=== PATIENT | female | born 1960 | race Caucasian/White ===

== ENCOUNTER 2018-06-23 22:15 | Emergency (ER) | payer MEDICAID ==
[~2018-06-23] VITALS: Ht 172.7 cm; Wt 63.6 kg
[~2018-06-23 22:15] MED LIST: ALBU8HFA PO; BACL10TA PO; CYCL-1 PO
[2018-06-24 00:22] VITALS: BP 170/75
== END 2018-06-24 00:24 | disposition home or self-care (01) ==
LOC: ER 22:16
DX: S01.01XA Laceration without foreign body of scalp, initial encounter (principal); S13.9XXA Sprain of joints and ligaments of unspecified parts of neck, initial encounter; S09.90XA Unspecified injury of head, initial encounter; I10 Essential (primary) hypertension; J45.909 Unspecified asthma, uncomplicated; G89.29 Other chronic pain; F12.90 Cannabis use, unspecified, uncomplicated; Z90.49 Acquired absence of other specified parts of digestive tract; Z98.890 Other specified postprocedural states; Z88.6 Allergy status to analgesic agent; Z88.5 Allergy status to narcotic agent; W01.198A Fall on same level from slipping, tripping and stumbling with subsequent striking against other object, initial encounter; Y93.89 Activity, other specified; Y92.89 Other specified places as the place of occurrence of the external cause; Y99.9 Unspecified external cause status
CPT/HCPCS: 12002; 70450; 72125; 99284

== ENCOUNTER 2019-08-29 14:35 | Emergency (ER) | payer MEDICAID ==
[~2019-08-29] VITALS: Ht 172.7 cm; Wt 70.0 kg
[2019-08-29 15:19] LABS: BASOPHILS # (AUTO) 0.1 X10'3 (0-0.2); BASOPHILS % (AUTO) 1.1 % (0-1); EOSINOPHILS # (AUTO) 0.2 X10'3 (0-0.9); EOSINOPHILS % (AUTO) 1.9 % (0-6); HEMATOCRIT 39.4 % (35.0-45.0); HEMOGLOBIN 13.5 g/dl (12.0-16.0); LYMPHOCYTES # (AUTO) 2.7 X10'3 (1.1-4.8); LYMPHOCYTES % (AUTO) 32.8 % (21-51); MEAN CORPUSCULAR HEMOGLOBIN 30.6 PG (27.0-31.0); MEAN CORPUSCULAR HGB CONC 34.3 g/dL (33.0-36.5); MEAN CORPUSCULAR VOLUME 89.2 FL (78-98); MEAN PLATELET VOLUME 8.8 FL (7.4-10.4); MONOCYTES # (AUTO) 0.6 X10'3 (0-0.9); NEUTROPHILS # (AUTO) 4.6 X10'3 (1.8-7.7); NEUTROPHILS % (AUTO) 57.2 % (42-75); PLATELET COUNT 265 X10'3 (140-440); RED BLOOD COUNT 4.42 X10'6 (4.20-5.60); RED CELL DISTRIBUTION WIDTH 13.6 % (11.5-14.5); WHITE BLOOD COUNT 8.1 X10'3 (4.5-11.0)
[2019-08-29 15:33] LABS: URINE HCG NEGATIVE (NEG)
[2019-08-29 15:33] LABS: ALANINE AMINOTRANSFERASE 33 U/L (12-78); ALBUMIN 3.6 G/DL (3.4-5.0); ALKALINE PHOSPHATASE 100 IU/L (46-116); ANION GAP 8 (8-16); ASPARTATE AMINO TRANSFERASE 28 U/L (10-37); BILIRUBIN,TOTAL 0.4 MG/DL (0.1-1.0); BLOOD UREA NITROGEN 21 MG/DL (7-18); BUN/CREATININE RATIO 15.6 (6.6-38.0); CALCIUM 10.2 MG/DL (8.5-10.1); CHLORIDE 103 MMOL/L (99-107); CREATININE 1.35 MG/DL (0.40-0.90); GLUCOSE 111 MG/DL (70-104); LIPASE 138 U/L (73-393); POTASSIUM 3.9 MMOL/L (3.5-5.1); SODIUM 142 MMOL/L (135-145); TOTAL CARBON DIOXIDE 30.7 MMOL/L (24-32); TOTAL PROTEIN 7.3 G/DL (6.4-8.2); eGFR 40 ML/MIN
[2019-08-29 15:36] LABS: CLARITY,URINE CLEAR (Clear); COLOR,URINE YELLOW (Yellow); GLUCOSE, URINE NEGATIVE (Neg); KETONES,URINE NEGATIVE (Neg); LEUKOCYTE ESTERASE ,URINE NEGATIVE (Neg); NITRITES, URINE NEGATIVE (Neg); OCCULT BLOOD,URINE NEGATIVE (Neg); PROTEIN,URINE NEGATIVE (Neg)
[2019-08-29 15:43] LABS: UA COLLECTION TYPE CLN CATCH MIDSTREAM
--- NOTE | 2019-08-29 16:03 | NUR ---
Provider, REY Adhikari is at the bedside with the patient.
[2019-08-29] MEDS ORDERED: ondansetron/PF 4mg/2ml inj IV ONE (16:20)
[2019-08-29] MEDS ORDERED: normal saline 1000ML IV soln IVB ONE (16:20)
[2019-08-29] MEDS ORDERED: morphine 4 MG/ML inj SYRINge IV ONE (16:20)
[2019-08-29] MEDS ORDERED: BACL10TA PO (17:23)
--- NOTE | 2019-08-29 17:47 | NUR ---
LEFT MESSAGE FOR AL: [phone]. ROSALINDA GAVE THE OKAY TO GIVE INFORMATION AND FOR HIM TO PICK HER UP.
[2019-08-29] MEDS ORDERED: amLODIPine 5mg tablet PO ONE (17:55)
[2019-08-29 18:44] VITALS: BP 160/75
[2019-08-29] MEDS ORDERED: LIDO700A32 TOP (19:03)
== END 2019-08-29 18:46 | disposition home or self-care (01) ==
LOC: ER 14:35
DX: M25.512 Pain in left shoulder (principal); F12.90 Cannabis use, unspecified, uncomplicated; F15.90 Other stimulant use, unspecified, uncomplicated; I10 Essential (primary) hypertension; J45.909 Unspecified asthma, uncomplicated; G89.29 Other chronic pain; Z90.49 Acquired absence of other specified parts of digestive tract; Z98.890 Other specified postprocedural states; Z88.6 Allergy status to analgesic agent; Z88.5 Allergy status to narcotic agent
CPT/HCPCS: 36415; 73030; 80053; 81003; 81025; 83690; 85025; 96374; 96375; 99284; J2270; J2405; J7030

== ENCOUNTER 2020-04-08 11:40 | Emergency (ER) | payer MEDICAID ==
[~2020-04-08] VITALS: Ht 172.7 cm; Wt 65.9 kg
[~2020-04-08 11:40] MED LIST changes: +LIDO700A32 TOP
[2020-04-08] MEDS ORDERED: ondansetron/PF 4mg/2ml inj IV ONE (12:20)
[2020-04-08] MEDS ORDERED: fentaNYL/PF 50MCG/1 ML 2ML syringe IV ONE (12:20)
[2020-04-08 12:22] LABS: EOSINOPHILS # (AUTO) 0.2 X10'3 (0-0.9); HEMOGLOBIN 13.2 g/dl (12.0-16.0); LYMPHOCYTES # (AUTO) 2.5 X10'3 (1.1-4.8); MONOCYTES # (AUTO) 0.5 X10'3 (0-0.9); NEUTROPHILS # (AUTO) 3.8 X10'3 (1.8-7.7)
[2020-04-08 12:24] LABS: BASOPHILS # (AUTO) 0.1 X10'3 (0-0.2); BASOPHILS % (AUTO) 1.8 % (0-1); EOSINOPHILS % (AUTO) 2.3 % (0-6); HEMATOCRIT 40.2 % (35.0-45.0); MEAN CORPUSCULAR HEMOGLOBIN 29.3 PG (27.0-31.0); MEAN CORPUSCULAR HGB CONC 32.9 g/dL (33.0-36.5); MEAN PLATELET VOLUME 9.4 FL (7.4-10.4); MONOCYTES % (AUTO) 7.4 % (2-12); NEUTROPHILS % (AUTO) 53.5 % (42-75); PLATELET COUNT 308 X10'3 (140-440); RED BLOOD COUNT 4.52 X10'6 (4.20-5.60); RED CELL DISTRIBUTION WIDTH 13.5 % (11.5-14.5); WHITE BLOOD COUNT 7.1 X10'3 (4.5-11.0)
[2020-04-08 12:34] LABS: ALANINE AMINOTRANSFERASE 40 U/L (12-78); ALBUMIN 3.6 G/DL (3.4-5.0); ALKALINE PHOSPHATASE 101 IU/L (46-116); ANION GAP 10 (8-16); ASPARTATE AMINO TRANSFERASE 24 U/L (10-37); BILIRUBIN,TOTAL 0.2 MG/DL (0.1-1.0); BLOOD UREA NITROGEN 27 MG/DL (7-18); BUN/CREATININE RATIO 17.9 (6.6-38.0); CALCIUM 9.9 MG/DL (8.5-10.1); CHLORIDE 107 MMOL/L (99-107); CREATININE 1.51 MG/DL (0.40-0.90); GLUCOSE 131 MG/DL (70-104); SODIUM 143 MMOL/L (135-145); TOTAL CARBON DIOXIDE 25.6 MMOL/L (24-32); TOTAL PROTEIN 7.3 G/DL (6.4-8.2); eGFR 35 ML/MIN
[2020-04-08] MEDS ORDERED: mag hydrox/Alum hydrox/simeth 30ml oral suspension PO ONE (13:00)
[2020-04-08] MEDS ORDERED: famotidine/PF 10 mg/ml inj IV ONE (13:00)
[2020-04-08] MEDS ORDERED: LIDOcaine Viscous 15ml cup MM ONE (13:00)
[2020-04-08] MEDS ORDERED: SUCR1TAB34 PO (13:12)
[2020-04-08 14:36] VITALS: BP 127/65
== END 2020-04-08 14:39 | disposition home or self-care (01) ==
LOC: ER 11:40
DX: T85.848A Pain due to other internal prosthetic devices, implants and grafts, initial encounter (principal); R07.89 Other chest pain; R11.2 Nausea with vomiting, unspecified; R06.02 Shortness of breath; I10 Essential (primary) hypertension; J45.909 Unspecified asthma, uncomplicated; F12.90 Cannabis use, unspecified, uncomplicated; F15.90 Other stimulant use, unspecified, uncomplicated; G89.29 Other chronic pain; Z86.19 Personal history of other infectious and parasitic diseases; Z90.49 Acquired absence of other specified parts of digestive tract; Z98.890 Other specified postprocedural states; Z72.89 Other problems related to lifestyle; Z88.6 Allergy status to analgesic agent; Z88.8 Allergy status to other drugs, medicaments and biological substances; Z79.899 Other long term (current) drug therapy
CPT/HCPCS: 36415; 71045; 74176; 80053; 84484; 85025; 93005; 96374; 96375; 99285; J2405; J3010; J3490

== ENCOUNTER 2020-10-25 17:32 | Emergency (ER) | payer MEDICAID ==
[~2020-10-25] VITALS: Ht 172.7 cm; Wt 51.8 kg
[~2020-10-25 17:32] MED LIST changes: +SUCR1TAB34 PO
[2020-10-25 19:01] LABS: URINE HCG NEGATIVE (NEG)
[2020-10-25 19:06] LABS: CLARITY,URINE CLEAR (Clear); COLOR,URINE YELLOW (Yellow); GLUCOSE, URINE NEGATIVE (Neg); KETONES,URINE TRACE mg/dl (Neg); LEUKOCYTE ESTERASE ,URINE SMALL (Neg); NITRITES, URINE NEGATIVE (Neg); OCCULT BLOOD,URINE NEGATIVE (Neg); PH,URINE 5.5 (4.8-8.0); PROTEIN,URINE NEGATIVE (Neg); UROBILINOGEN,URINE 0.2 E.U/dL (0.2-1.0)
[2020-10-25 19:07] LABS: UA COLLECTION TYPE CLN CATCH MIDSTREAM
[2020-10-25 19:16] LABS: RBC,URINE 0-2 /HPF (0-2); WBC,URINE 20-30 /HPF (0-4)
[2020-10-25 19:17] LABS: BACTERIA,URINE 2+ /HPF (Neg); MUCUS STRANDS FEW /LPF (Neg); SQUAMOUS EPITHELIAL CELL,UR MODERATE /LPF (FEW)
[2020-10-25 19:18] LABS: RENAL CELLS, URINE FEW /HPF; YEAST FEW /HPF (NEGATIVE)
[2020-10-25 19:24] LABS: BASOPHILS # (AUTO) 0.1 X10'3 (0-0.2); BASOPHILS % (AUTO) 0.8 % (0-1); EOSINOPHILS # (AUTO) 0.1 X10'3 (0-0.9); EOSINOPHILS % (AUTO) 1.4 % (0-6); HEMATOCRIT 42.2 % (35.0-45.0); LYMPHOCYTES # (AUTO) 2.6 X10'3 (1.1-4.8); LYMPHOCYTES % (AUTO) 30.5 % (21-51); MEAN CORPUSCULAR HEMOGLOBIN 30.1 PG (27.0-31.0); MEAN CORPUSCULAR HGB CONC 33.1 g/dL (33.0-36.5); MEAN PLATELET VOLUME 8.9 FL (7.4-10.4); MONOCYTES # (AUTO) 0.7 X10'3 (0-0.9); MONOCYTES % (AUTO) 8.1 % (2-12); NEUTROPHILS % (AUTO) 59.2 % (42-75); PLATELET COUNT 320 X10'3 (140-440); RED BLOOD COUNT 4.63 X10'6 (4.20-5.60); WHITE BLOOD COUNT 8.5 X10'3 (4.5-11.0)
[2020-10-25 19:50] LABS: ALANINE AMINOTRANSFERASE 46 U/L (12-78); ALBUMIN 3.9 G/DL (3.4-5.0); ALKALINE PHOSPHATASE 96 IU/L (46-116); ANION GAP 12 (8-16); ASPARTATE AMINO TRANSFERASE 30 U/L (10-37); BILIRUBIN,TOTAL 0.2 MG/DL (0.1-1.0); BLOOD UREA NITROGEN 30 MG/DL (7-18); BUN/CREATININE RATIO 13.8 (6.6-38.0); CALCIUM 10.8 MG/DL (8.5-10.1); CHLORIDE 104 MMOL/L (99-107); CREATININE 2.18 MG/DL (0.40-0.90); GLUCOSE 132 MG/DL (70-104); LIPASE 171 U/L (73-393); SODIUM 144 MMOL/L (135-145); TOTAL CARBON DIOXIDE 27.6 MMOL/L (24-32); eGFR 23 ML/MIN
[2020-10-25 21:09] VITALS: BP 129/83
[2020-10-25] MEDS ORDERED: DOXYCYCLINE 100MG CAPSULE PO STA (21:53)
[2020-10-25] MEDS ORDERED: acetaminophen 325mg tablet PO ONE (21:55)
[2020-10-25] MEDS ORDERED: CefTRIAXone 1000mg IM Kit (w/lidocaine diluent) IM ONE (21:55)
[2020-10-25] MEDS ORDERED: DOXY100C2 PO (22:16)
== END 2020-10-25 22:27 | disposition home or self-care (01) ==
LOC: ER 17:33
DX: N39.0 Urinary tract infection, site not specified (principal); R10.84 Generalized abdominal pain; R11.0 Nausea; I10 Essential (primary) hypertension; J45.909 Unspecified asthma, uncomplicated; G89.29 Other chronic pain; F12.90 Cannabis use, unspecified, uncomplicated; F15.90 Other stimulant use, unspecified, uncomplicated; Z86.19 Personal history of other infectious and parasitic diseases; Z90.49 Acquired absence of other specified parts of digestive tract; Z98.890 Other specified postprocedural states; Z72.89 Other problems related to lifestyle; Z88.8 Allergy status to other drugs, medicaments and biological substances; Z88.6 Allergy status to analgesic agent; Z79.2 Long term (current) use of antibiotics; Z79.899 Other long term (current) drug therapy
CPT/HCPCS: 36415; 74176; 80053; 81001; 81025; 83690; 85025; 87088; 87491; 87591; 96372; 99284; J0696

== ENCOUNTER → 2021-05-13 | Emergency (ER) | payer MEDICAID ==
[~2021-05-13] VITALS: Ht 172.7 cm; Wt 57.8 kg
[~2021-05-13] MED LIST changes: +normal saline 1000ML IV soln IVB ONE; +normal saline 1000ml 1,000 ML IV ONE
[2021-05-13 22:41] VITALS: BP 116/72
[2021-05-13 22:56] LABS: CLARITY,URINE SLIGHTLY CLOUDY (Clear); COLOR,URINE YELLOW (Yellow); GLUCOSE, URINE NEGATIVE (Neg); KETONES,URINE NEGATIVE (Neg); LEUKOCYTE ESTERASE ,URINE MODERATE (Neg); NITRITES, URINE NEGATIVE (Neg); OCCULT BLOOD,URINE TRACE-INTACT (Neg); PH,URINE 5.5 (4.8-8.0); PROTEIN,URINE TRACE mg/dl (Neg); UROBILINOGEN,URINE 0.2 E.U/dL (0.2-1.0)
[2021-05-13 23:02] LABS: UA COLLECTION TYPE CLN CATCH MIDSTREAM
[2021-05-13 23:04] LABS: BACTERIA,URINE FEW /HPF (Neg); RBC,URINE 0-2 /HPF (0-2); SQUAMOUS EPITHELIAL CELL,UR FEW /LPF (FEW); WBC CLUMPS,URINE FEW /HPF (NEGATIVE); WBC,URINE 20-30 /HPF (0-4)
[2021-05-13 23:24] LABS: BASOPHILS # (AUTO) 0.1 X10'3 (0-0.2); EOSINOPHILS # (AUTO) 0.1 X10'3 (0-0.9); EOSINOPHILS % (AUTO) 1.2 % (0-6); HEMATOCRIT 36.1 % (35.0-45.0); HEMOGLOBIN 12.1 g/dl (12.0-16.0); LYMPHOCYTES # (AUTO) 2.6 X10'3 (1.1-4.8); LYMPHOCYTES % (AUTO) 24.2 % (21-51); MEAN CORPUSCULAR HEMOGLOBIN 30.6 PG (27.0-31.0); MEAN CORPUSCULAR HGB CONC 33.6 g/dL (33.0-36.5); MEAN CORPUSCULAR VOLUME 91.1 FL (78-98); MEAN PLATELET VOLUME 9.6 FL (7.4-10.4); MONOCYTES # (AUTO) 0.7 X10'3 (0-0.9); MONOCYTES % (AUTO) 6.2 % (2-12); NEUTROPHILS # (AUTO) 7.3 X10'3 (1.8-7.7); NEUTROPHILS % (AUTO) 67.4 % (42-75); PLATELET COUNT 306 X10'3 (140-440); RED BLOOD COUNT 3.96 X10'6 (4.20-5.60); WHITE BLOOD COUNT 10.9 X10'3 (4.5-11.0)
[2021-05-13 23:40] LABS: ALANINE AMINOTRANSFERASE 46 U/L (12-78); ALBUMIN 4.3 G/DL (3.4-5.0); ALBUMIN/GLOBULIN RATIO 1.2 (1.1-1.5); ALKALINE PHOSPHATASE 73 IU/L (46-116); ANION GAP 15 (8-16); ASPARTATE AMINO TRANSFERASE 28 U/L (10-37); BILIRUBIN,TOTAL 0.3 MG/DL (0.1-1.0); BLOOD UREA NITROGEN 60 MG/DL (7-18); BUN/CREATININE RATIO 12.7 (6.6-38.0); CALCIUM 9.5 MG/DL (8.5-10.1); CHLORIDE 103 MMOL/L (99-107); CREATININE 4.72 MG/DL (0.40-0.90); GLUCOSE 146 MG/DL (70-104); LIPASE 118 U/L (73-393); POTASSIUM 3.8 MMOL/L (3.5-5.1); SODIUM 142 MMOL/L (135-145); TOTAL CARBON DIOXIDE 23.9 MMOL/L (24-32); TOTAL PROTEIN 7.9 G/DL (6.4-8.2); eGFR 9 ML/MIN
== END | disposition left against medical advice (07) ==
LOC: ER 22:21
DX: H92.02 Otalgia, left ear (principal); Z53.21 Procedure and treatment not carried out due to patient leaving prior to being seen by health care provider
CPT/HCPCS: 36415; 80053; 81001; 83690; 85025; 87088

== ENCOUNTER 2021-09-18 13:06 | Emergency (ER) | payer MEDICAID ==
[~2021-09-18] VITALS: Ht 170.2 cm; Wt 61.4 kg
[~2021-09-18 13:06] MED LIST changes: -normal saline 1000ML IV soln IVB ONE; -normal saline 1000ml 1,000 ML IV ONE
[2021-09-18 13:59] VITALS: BP 93/40
[2021-09-18] MEDS ORDERED: cephalexin 500mg capsule PO ONE (19:25)
[2021-09-18] MEDS ORDERED: sulfamethoxazole/trimethoprim DS (800/160mg) tablet PO ONE (19:25)
[2021-09-18] MEDS ORDERED: SULF1TAB45 PO (19:26)
[2021-09-18] MEDS ORDERED: CEPH250T PO (19:26)
== END 2021-09-18 19:50 | disposition home or self-care (01) ==
LOC: ER 13:07
DX: L03.115 Cellulitis of right lower limb (principal); I10 Essential (primary) hypertension; J45.909 Unspecified asthma, uncomplicated; G89.29 Other chronic pain; F12.90 Cannabis use, unspecified, uncomplicated; F15.90 Other stimulant use, unspecified, uncomplicated; Z86.19 Personal history of other infectious and parasitic diseases; Z90.49 Acquired absence of other specified parts of digestive tract; Z98.890 Other specified postprocedural states; Z72.89 Other problems related to lifestyle; Z88.6 Allergy status to analgesic agent; Z88.5 Allergy status to narcotic agent; Z88.8 Allergy status to other drugs, medicaments and biological substances; Z79.2 Long term (current) use of antibiotics; Z79.899 Other long term (current) drug therapy
CPT/HCPCS: 99283

== ENCOUNTER 2021-10-26 02:31 | Inpatient (IN) | payer MEDICAID ==
[2021-10-26] VITALS (7 sets, daily range): BP systolic 103–147; BP diastolic 55–76
[~2021-10-26] VITALS: Ht 170.2 cm; Wt 59.1 kg
[2021-10-26 04:33] LABS: BASOPHILS # (AUTO) 0.1 X10'3 (0-0.2); BASOPHILS % (AUTO) 0.9 % (0-1); EOSINOPHILS # (AUTO) 0.1 X10'3 (0-0.9); HEMATOCRIT 35.4 % (35.0-45.0); HEMOGLOBIN 12.1 g/dl (12.0-16.0); LYMPHOCYTES % (AUTO) 18.8 % (21-51); MEAN CORPUSCULAR HEMOGLOBIN 30.2 PG (27.0-31.0); MEAN CORPUSCULAR HGB CONC 34.1 g/dL (33.0-36.5); MEAN CORPUSCULAR VOLUME 88.6 FL (78-98); MEAN PLATELET VOLUME 9.3 FL (7.4-10.4); MONOCYTES # (AUTO) 0.8 X10'3 (0-0.9); MONOCYTES % (AUTO) 7.7 % (2-12); NEUTROPHILS # (AUTO) 7.6 X10'3 (1.8-7.7); NEUTROPHILS % (AUTO) 71.6 % (42-75); PLATELET COUNT 286 X10'3 (140-440); RED BLOOD COUNT 3.99 X10'6 (4.20-5.60); RED CELL DISTRIBUTION WIDTH 14.1 % (11.5-14.5); WHITE BLOOD COUNT 10.6 X10'3 (4.5-11.0)
[2021-10-26 04:46] LABS: ALANINE AMINOTRANSFERASE 65 U/L (12-78); ALBUMIN 3.6 G/DL (3.4-5.0); ALBUMIN/GLOBULIN RATIO 0.9 (1.1-1.5); ALKALINE PHOSPHATASE 101 IU/L (46-116); ANION GAP 9 (8-16); ASPARTATE AMINO TRANSFERASE 108 U/L (10-37); BILIRUBIN,TOTAL 0.4 MG/DL (0.1-1.0); BLOOD UREA NITROGEN 30 MG/DL (7-18); CALCIUM 8.7 MG/DL (8.5-10.1); CHLORIDE 106 MMOL/L (99-107); CREATININE 1.76 MG/DL (0.40-0.90); GLUCOSE 143 MG/DL (70-104); POTASSIUM 4.4 MMOL/L (3.5-5.1); SODIUM 144 MMOL/L (135-145); TOTAL PROTEIN 7.8 G/DL (6.4-8.2); eGFR 29 ML/MIN
[2021-10-26 04:54] LABS: ETHANOL < 0.010 GM/DL (0.0-0.010)
[2021-10-26 05:00] LABS: MAGNESIUM 0.6 MG/DL (1.5-2.4)
[2021-10-26] MEDS ORDERED: magnesium 2GM in 50ml NS 50 ML IV ONE ×2 (05:10→06:20)
--- NOTE | 2021-10-26 05:38 | NUR ---
attempted med rec. pt states taskes "alot of meds but does not have a list or know them all." will pass along to dayshift rn.
[2021-10-26] MEDS ORDERED: ondansetron/PF 4mg/2ml inj IV ONE (05:45)
[2021-10-26] MEDS ORDERED: magnesium oxide 400mg tablet PO ONE (06:20)
[2021-10-26 06:21] LABS: PHOSPHORUS 3.7 MG/DL (2.3-4.5)
[2021-10-26 06:46] LABS: APTT 22 SECONDS (22-32)
[2021-10-26] MEDS ORDERED: LORazepam 2 mg/ml vial IV ONE (07:25)
[2021-10-26] MEDS ORDERED: magnesium 4gm in 100ml NS 100 ML IV PRN (08:10)
[2021-10-26] MEDS ORDERED: potassium Cl 20 mEq SR tablet PO PRN ×2 (08:10)
[2021-10-26] MEDS ORDERED: potassium CL 10mEq/100ml bag 100 ML IV PRN (08:10)
[2021-10-26] MEDS ORDERED: mag hydrox/Alum hydrox/simeth 30ml oral suspension PO PRN (08:10)
[2021-10-26] MEDS ORDERED: magnesium 2GM in 50ml NS 50 ML IV PRN (08:10)
[2021-10-26] MEDS ORDERED: ondansetron/PF 4mg/2ml inj IV PRN (08:10)
[2021-10-26] MEDS ORDERED: magnesium hydroxide 30ml (MOM) UD suspension PO PRN (08:10)
[2021-10-26] MEDS ORDERED: acetaminophen 325mg tablet PO PRN ×2 (08:10)
[2021-10-26] MEDS ORDERED: magnesium Cl slow-release 64mg tablet PO PRN (08:10)
--- NOTE | 2021-10-26 09:55 | NUR ---
pt very sleepy after ativan unable to speak with hosptialist. Mg being redrawn.
[2021-10-26 10:35] LABS: MAGNESIUM 2.6 MG/DL (1.5-2.4)
--- NOTE | 2021-10-26 11:17 | NUR ---
Mg level is now 2.6. Paging Dr. Lynne with results
[2021-10-26] MEDS ORDERED: metoprolol tartrate 1mg/ml inj IV PRN (11:45)
[2021-10-26] MEDS ORDERED: aminophylline 250mg/10ml inj. IV PRN (11:45)
[2021-10-26] MEDS ORDERED: regadenoson 0.4mg/5ml syringe IV ONE (11:45)
[2021-10-26] MEDS ORDERED: nitroGLYCERIN 0.4mg SUBLingual tab SL PRN (11:45)
[2021-10-26] MEDS ORDERED: LISI20TA28 PO (11:47)
[2021-10-26] MEDS ORDERED: CLON0.2T PO (11:47)
[2021-10-26] MEDS ORDERED: OMEP-50 PO (11:47)
[2021-10-26] MEDS ORDERED: LEVO88TA7 PO (11:47)
[2021-10-26] MEDS ORDERED: AMLO10TA13 PO (11:47)
[2021-10-26] MEDS ORDERED: ALBU8.5H17 IH (11:47)
[2021-10-26] MEDS ORDERED: METO-384 PO (11:47)
[2021-10-26] MEDS ORDERED: GABA300C PO (11:47)
[2021-10-26] MEDS ORDERED: CHOL20003 PO (11:47)
[2021-10-26] MEDS ORDERED: HYDR12.55 PO (11:47)
[2021-10-26] MEDS ORDERED: regadenoson 0.4mg/5ml syringe IV PRN (11:50)
[2021-10-26 13:27] LABS: CLARITY,URINE SLIGHTLY CLOUDY (Clear); COLOR,URINE YELLOW (Yellow); GLUCOSE, URINE NEGATIVE (Neg); KETONES,URINE NEGATIVE (Neg); LEUKOCYTE ESTERASE ,URINE SMALL (Neg); NITRITES, URINE NEGATIVE (Neg); OCCULT BLOOD,URINE NEGATIVE (Neg); PROTEIN,URINE NEGATIVE (Neg)
[2021-10-26 13:39] LABS: URINE AMPHETAMINE SCREEN POSITIVE (Neg); URINE BARBITUATE SCREEN NEGATIVE (Neg); URINE BENZODIAZEPINES SCREEN NEGATIVE (Neg); URINE CANNABINOID SCREEN NEGATIVE (Neg); URINE COCAINE SCREEN NEGATIVE (Neg); URINE METHADONE SCREEN NEGATIVE (Neg); URINE OPIATE SCREEN NEGATIVE (Neg); URINE PHENCYCLIDINE SCREEN NEGATIVE (Neg)
[2021-10-26 13:40] LABS: SQUAMOUS EPITHELIAL CELL,UR MANY /LPF (FEW); UA COLLECTION TYPE CLN CATCH MIDSTREAM
[2021-10-26 13:41] LABS: HYALINE CASTS 0-3 /LPF (NEGATIVE)
[2021-10-26 13:42] LABS: TRANSITIONAL EPI CELLS,URINE FEW /HPF
[2021-10-26 13:43] LABS: RBC,URINE 0-2 /HPF (0-2)
[2021-10-26 13:47] LABS: BACTERIA,URINE 1+ /HPF (Neg); YEAST FEW /HPF (NEGATIVE)
--- NOTE | 2021-10-26 13:58 | NUR ---
relieving RN for lunch, pt is sleeping, easily arouseable but falls asleep during any conversation, pt gave me permission to speak with Brando Ballard, boyfriend,
--- NOTE | 2021-10-26 14:14 | NUR ---
to nuc med
[2021-10-26] MEDS ORDERED: K and/or MAG REPLACEMENT MC SCH (20:00)
[2021-10-26] MEDS ORDERED: docusate sod 100mg capsule PO SCH (20:00)
== END 2021-10-26 16:56 | disposition home or self-care (01) | DRG 203 ==
LOC: ER 02:31 → ED HOLD 08:09 → UNDOADMOB 08:09 → ED HOLD 12:45 → UNDOADMOB 12:45 → INTOOBSV 12:55 → OBSVTOIN 12:55 → UNDODISIN 16:56
PROVIDERS: ADMIT Internal Medicine; ATTEND Internal Medicine
PROC: 4A02XM4 Measurement of Cardiac Total Activity, External Approach (ICD-10-PCS; principal; 2021-10-26)
PROC: 3E073KZ Introduction of Other Diagnostic Substance into Coronary Artery, Percutaneous Approach (ICD-10-PCS; 2021-10-26)
DX: R07.2 Precordial pain (principal); B19.20 Unspecified viral hepatitis C without hepatic coma; F15.90 Other stimulant use, unspecified, uncomplicated; Z20.822 Contact with and (suspected) exposure to COVID-19; F17.210 Nicotine dependence, cigarettes, uncomplicated; F41.0 Panic disorder [episodic paroxysmal anxiety]; I12.9 Hypertensive chronic kidney disease with stage 1 through stage 4 chronic kidney disease, or unspecified chronic kidney disease; J44.9 Chronic obstructive pulmonary disease, unspecified; N18.30 Chronic kidney disease, stage 3 unspecified; E83.42 Hypomagnesemia; F12.90 Cannabis use, unspecified, uncomplicated; F41.9 Anxiety disorder, unspecified; G89.29 Other chronic pain; K21.9 Gastro-esophageal reflux disease without esophagitis; M54.9 Dorsalgia, unspecified; Z79.899 Other long term (current) drug therapy; Z88.8 Allergy status to other drugs, medicaments and biological substances; Z88.5 Allergy status to narcotic agent; Z90.49 Acquired absence of other specified parts of digestive tract
CPT/HCPCS: 36415; 71045; 78452; 80053; 80305; 80320; 81001; 83735; 83880; 84100; 84132; 84484; 85025; 85610; 85730; 87081; 87635; 93005; 93017; 99285; A9500; C9803; G0378; J2060; J2405; J2785; J3475

== ENCOUNTER 2023-01-09 14:37 | Emergency (ER) | payer MEDICAID ==
[~2023-01-09] VITALS: Ht 172.7 cm; Wt 61.4 kg
[~2023-01-09 14:37] MED LIST changes: +ALBU8.5H17 IH; -ALBU8HFA PO; +AMLO10TA13 PO; -BACL10TA PO; +CHOL20003 PO; +CLON0.2T PO; -CYCL-1 PO; +GABA300C PO; +HYDR12.55 PO; +LEVO88TA7 PO; -LIDO700A32 TOP; +LISI20TA28 PO; +METO-384 PO; +OMEP20CA16 PO; -SUCR1TAB34 PO
[2023-01-09 15:21] LABS: BASOPHILS # (AUTO) 0.1 X10'3 (0-0.2); BASOPHILS % (AUTO) 0.5 % (0-1); EOSINOPHILS # (AUTO) 0.1 X10'3 (0-0.9); EOSINOPHILS % (AUTO) 0.8 % (0-6); HEMATOCRIT 35.7 % (35.0-45.0); HEMOGLOBIN 11.8 g/dl (12.0-16.0); LYMPHOCYTES # (AUTO) 2.8 X10'3 (1.1-4.8); LYMPHOCYTES % (AUTO) 18.4 % (21-51); MEAN CORPUSCULAR HEMOGLOBIN 29.6 PG (27.0-31.0); MEAN CORPUSCULAR HGB CONC 33.1 g/dL (33.0-36.5); MEAN CORPUSCULAR VOLUME 89.4 FL (78-98); MEAN PLATELET VOLUME 9.4 FL (7.4-10.4); MONOCYTES # (AUTO) 1.3 X10'3 (0-0.9); MONOCYTES % (AUTO) 8.3 % (2-12); NEUTROPHILS # (AUTO) 10.8 X10'3 (1.8-7.7); PLATELET COUNT 314 X10'3 (140-440); RED BLOOD COUNT 3.99 X10'6 (4.20-5.60); RED CELL DISTRIBUTION WIDTH 12.8 % (11.5-14.5); WHITE BLOOD COUNT 15.1 X10'3 (4.5-11.0)
[2023-01-09 15:35] LABS: ALANINE AMINOTRANSFERASE 21 U/L (12-78); ALBUMIN 3.2 G/DL (3.4-5.0); ALBUMIN/GLOBULIN RATIO 0.7 (1.1-1.5); ALKALINE PHOSPHATASE 84 IU/L (46-116); ANION GAP 9 (8-16); ASPARTATE AMINO TRANSFERASE 14 U/L (10-37); BILIRUBIN,TOTAL 0.3 MG/DL (0.1-1.0); BLOOD UREA NITROGEN 37 MG/DL (7-18); BUN/CREATININE RATIO 16.8 (10.0-20.0); CALCIUM 9.2 MG/DL (8.5-10.1); CHLORIDE 102 MMOL/L (99-107); GLUCOSE 178 MG/DL (70-104); POTASSIUM 3.2 MMOL/L (3.5-5.1); SODIUM 139 MMOL/L (135-145); TOTAL CARBON DIOXIDE 28.4 MMOL/L (24-32); TOTAL PROTEIN 7.8 G/DL (6.4-8.2); eGFR 22 ML/MIN
--- NOTE | 2023-01-09 18:53 | NUR ---
DR. HUMPHREY AT BEDSIDE
[2023-01-09] MEDS ORDERED: normal saline 1000ML IV soln IVB ONE (19:30)
[2023-01-09] MEDS ORDERED: methylPREDNISolone sod succ 125mg/2ml vial IV ONE (19:30)
[2023-01-09] MEDS ORDERED: albuterol 2.5 MG/3 ML nebule CONTNEB PRN (19:30)
[2023-01-09] MEDS ORDERED: azithromycin 250mg tablet PO ONE (19:30)
[2023-01-09] MEDS ORDERED: ipratropium 0.5 MG/2.5ML nebule IH ONE (19:30)
[2023-01-09] MEDS ORDERED: CefTRIAXone/D5W-Rocephin 1gm 50 ML IV ONE (19:30)
[2023-01-09] MEDS ORDERED: ALBU8HFA PO (22:11)
[2023-01-09] MEDS ORDERED: BENZ-38 PO (22:11)
[2023-01-09] MEDS ORDERED: AZIT250T3 PO (22:11)
[2023-01-09] MEDS ORDERED: PRED20TA PO (22:11)
[2023-01-09 23:02] VITALS: BP 145/87
== END 2023-01-09 23:10 | disposition home or self-care (01) ==
LOC: ER 14:38
DX: J44.1 Chronic obstructive pulmonary disease with (acute) exacerbation (principal); R05.8 Other specified cough; I10 Essential (primary) hypertension; K21.9 Gastro-esophageal reflux disease without esophagitis; F12.90 Cannabis use, unspecified, uncomplicated; F15.20 Other stimulant dependence, uncomplicated; Z88.6 Allergy status to analgesic agent; Z88.8 Allergy status to other drugs, medicaments and biological substances; Z90.49 Acquired absence of other specified parts of digestive tract; Z98.890 Other specified postprocedural states
CPT/HCPCS: 36415; 71045; 80053; 83880; 84484; 85025; 93005; 94640; 96365; 96375; 99285; A6258; J0696; J2930; J7030; 94760

== ENCOUNTER 2023-01-19 12:03 | Emergency (ER) | payer MEDICAID ==
[~2023-01-19] VITALS: Ht 170.2 cm; Wt 59.1 kg
[~2023-01-19 12:03] MED LIST changes: +ALBU8HFA PO; +AZIT250T3 PO; +BENZ-38 PO
[2023-01-19] MEDS ORDERED: HYDROcodone/acetaminophen 10/325mg tab PO ONE (14:20)
--- NOTE | 2023-01-19 15:08 | NUR ---
PT GOING TO CT.
[2023-01-19] MEDS ORDERED: HYDR-3973 PO (16:11)
[2023-01-19 16:28] VITALS: BP 140/76
--- NOTE | 2023-01-19 16:28 | NUR ---
PT STATED THAT [facility]EL[facility] OCONNELL WILL BE HER TRANSPORT HOME. RN LEFT VM AND CHECKED THE LOBBY. RN WILL TRY AGAIN.
--- NOTE | 2023-01-19 16:29 | NUR ---
TECH APPLIED SLING TO PT LEFT ARM.
== END 2023-01-19 16:40 | disposition home or self-care (01) ==
LOC: ER 12:03
DX: M25.512 Pain in left shoulder (principal); M54.2 Cervicalgia; M54.9 Dorsalgia, unspecified; I10 Essential (primary) hypertension; J44.9 Chronic obstructive pulmonary disease, unspecified; K21.9 Gastro-esophageal reflux disease without esophagitis; E03.9 Hypothyroidism, unspecified; G89.29 Other chronic pain; F12.10 Cannabis abuse, uncomplicated; F15.10 Other stimulant abuse, uncomplicated; Z98.890 Other specified postprocedural states; Z88.6 Allergy status to analgesic agent; Z88.8 Allergy status to other drugs, medicaments and biological substances; Z88.5 Allergy status to narcotic agent; Z79.899 Other long term (current) drug therapy; Z79.1 Long term (current) use of non-steroidal anti-inflammatories (NSAID)
CPT/HCPCS: 29505; 72125; 72128; 73000; 73030; 99284; A4565

== ENCOUNTER 2023-02-21 14:16 | Inpatient (IN) | payer MEDICAID ==
[~2023-02-21] VITALS: Ht 172.7 cm; Wt 59.0 kg
[2023-02-21] VITALS (10 sets, daily range): BP systolic 108–125; BP diastolic 51–65
[~2023-02-21 14:16] MED LIST changes: -ALBU8HFA PO; -BENZ-38 PO
[2023-02-21 15:04] LABS: BASOPHILS # (AUTO) 0.1 X10'3 (0-0.2); BASOPHILS % (AUTO) 0.7 % (0-1); EOSINOPHILS # (AUTO) 0.1 X10'3 (0-0.9); EOSINOPHILS % (AUTO) 0.5 % (0-6); HEMATOCRIT 33.7 % (35.0-45.0); HEMOGLOBIN 11.1 g/dl (12.0-16.0); LYMPHOCYTES # (AUTO) 2.1 X10'3 (1.1-4.8); LYMPHOCYTES % (AUTO) 16.2 % (21-51); MEAN CORPUSCULAR HEMOGLOBIN 28.9 PG (27.0-31.0); MEAN CORPUSCULAR HGB CONC 32.8 g/dL (33.0-36.5); MEAN PLATELET VOLUME 8.6 FL (7.4-10.4); MONOCYTES # (AUTO) 0.7 X10'3 (0-0.9); MONOCYTES % (AUTO) 5.1 % (2-12); NEUTROPHILS # (AUTO) 10.2 X10'3 (1.8-7.7); NEUTROPHILS % (AUTO) 77.5 % (42-75); PLATELET COUNT 444 X10'3 (140-440); RED BLOOD COUNT 3.82 X10'6 (4.20-5.60); RED CELL DISTRIBUTION WIDTH 13.2 % (11.5-14.5); WHITE BLOOD COUNT 13.1 X10'3 (4.5-11.0)
[2023-02-21 15:22] LABS: ALANINE AMINOTRANSFERASE 25 U/L (12-78); ALBUMIN 3.3 G/DL (3.4-5.0); ALBUMIN/GLOBULIN RATIO 0.7 (1.1-1.5); ALKALINE PHOSPHATASE 93 IU/L (46-116); ANION GAP 10 (8-16); ASPARTATE AMINO TRANSFERASE 19 U/L (10-37); BILIRUBIN,TOTAL 0.3 MG/DL (0.1-1.0); BLOOD UREA NITROGEN 30 MG/DL (7-18); CHLORIDE 105 MMOL/L (99-107); CREATININE 1.76 MG/DL (0.40-0.90); GLUCOSE 128 MG/DL (70-104); LIPASE 129 U/L (73-393); POTASSIUM 3.9 MMOL/L (3.5-5.1); SODIUM 141 MMOL/L (135-145); TOTAL CARBON DIOXIDE 25.6 MMOL/L (24-32); TOTAL PROTEIN 7.8 G/DL (6.4-8.2); eGFR 29 ML/MIN
[2023-02-21] MEDS ORDERED: normal saline 1000ml 1,000 ML IV ONE ×2 (16:05→16:20)
[2023-02-21] MEDS ORDERED: ondansetron/PF 4mg/2ml inj IV ONE (16:20)
[2023-02-21] MEDS ORDERED: diphenhydrAMINE 50 mg/ml inj IV ONE (16:20)
[2023-02-21] MEDS ORDERED: proCHLORperazine 10 MG/2 ml inj IV ONE (16:20)
[2023-02-21 16:29] LABS: CLARITY,URINE CLEAR (Clear); COLOR,URINE YELLOW (Yellow); GLUCOSE, URINE NEGATIVE (Neg); KETONES,URINE NEGATIVE (Neg); LEUKOCYTE ESTERASE ,URINE NEGATIVE (Neg); NITRITES, URINE NEGATIVE (Neg); OCCULT BLOOD,URINE NEGATIVE (Neg); PROTEIN,URINE NEGATIVE (Neg); URINE HCG NEGATIVE (NEG); UROBILINOGEN,URINE 0.2 E.U/dL (0.2-1.0)
[2023-02-21 16:31] LABS: UA COLLECTION TYPE CLN CATCH MIDSTREAM
[2023-02-21] MEDS ORDERED: piperacillin/tazo 3.375gm/50ml 50 ML IV ONE (18:15)
--- NOTE | 2023-02-21 18:49 | NUR ---
Pt moved from ER fast tract E to ER rm 7.
--- NOTE | 2023-02-21 19:10 | NUR ---
DR LEPE AT BEDSIDE, PT TO SURGERY JAYNE REINFORCED IMPORTANCE OF NPO STATUS WITH PT AND
[2023-02-21] MEDS ORDERED: ondansetron/PF 4mg/2ml inj IV PRN ×2 (19:30→19:55)
[2023-02-21] MEDS ORDERED: labetalol 20mg/4ml (5mg/ml) syringe IV PRN (19:30)
[2023-02-21] MEDS ORDERED: ringers solution, lacted 1,000 ML IV SCH (19:30)
[2023-02-21] MEDS ORDERED: hydrALAZINE 20mg/ml inj. IV PRN (19:30)
[2023-02-21] MEDS ORDERED: fentaNYL/PF 50MCG/1 ML 2ML syringe IV PRN ×2 (19:30)
--- NOTE | 2023-02-21 19:44 | NUR ---
fentanyl dose not given as these orders are for recovery room only verified with Frieda Mac RN
--- NOTE | 2023-02-21 19:45 | NUR ---
remaining fentanyl non admin wasted
[2023-02-21] MEDS ORDERED: diphenhydrAMINE 50 mg/ml inj IV PRN (19:55)
[2023-02-21] MEDS ORDERED: diphenhydrAMINE 25mg capsule PO PRN (19:55)
[2023-02-21] MEDS: normal saline 1000ml 1,000 ML IV SCH (19:55)
[2023-02-21] MEDS ORDERED: magnesium hydroxide 30ml (MOM) UD suspension PO PRN (19:55)
[2023-02-21] MEDS ORDERED: bisacodyl 10mg suppository rectal RC PRN (19:55)
[2023-02-21] MEDS ORDERED: ipratropium/albuterol 3ml nebule NEB PRN (19:55)
[2023-02-21] MEDS ORDERED: acetaminophen 650mg rectal suppository RC PRN (19:55)
[2023-02-21] MEDS ORDERED: acetaminophen 325mg tablet PO PRN ×2 (19:55)
[2023-02-21] MEDS ORDERED: ondansetron 4mg rapidly disintigrating tab PO PRN (19:55)
[2023-02-21] MEDS ORDERED: mag hydrox/Alum hydrox/simeth 30ml oral suspension PO PRN (19:55)
[2023-02-21] MEDS ORDERED: metoclopramide 5 mg/ml inj IV PRN (19:55)
[2023-02-21] MEDS: docusate sod 100mg capsule PO SCH (20:00)
--- NOTE | 2023-02-21 20:00 | NUR ---
REPORT GIVEN TO FORMULA TECHNICIAN
[2023-02-21] MEDS ORDERED: midazolam 1 mg/ML 2ml injection ONE (20:04)
[2023-02-21] MEDS ORDERED: fentaNYL/PF 50MCG/1 ML 2ML syringe ONE (20:04)
[2023-02-21] MEDS ORDERED: LIDOcaine 2% (20mg/ml) 5ml vial ONE (20:05)
[2023-02-21] MEDS ORDERED: dexamethasone sod phosphate 4mg/ml inj. ONE (20:05)
[2023-02-21] MEDS ORDERED: propofol inj 20 ML IV ONE (20:05)
[2023-02-21] MEDS ORDERED: ondansetron/PF 4mg/2ml inj ONE (20:05)
[2023-02-21] MEDS ORDERED: rocuronium 10mg/ml inj IV ONE (20:05)
[2023-02-21] MEDS ORDERED: neostigmine methylsulfate 1 MG/ML 10ml vial ONE (20:05)
[2023-02-21] MEDS ORDERED: glycopyrrolate 0.2mg/ml inj ONE (20:05)
--- NOTE | 2023-02-21 20:22 | NUR ---
CALL PLACED TO OR, THEY WILL COME TAKE PT UP NOW BEFORE SHE GOES TO ORTHO
[2023-02-21] MEDS ORDERED: dexmedetomidine 200mcg/2ml inj. IV ONE (20:37)
[2023-02-21 20:52] LABS: CREATINE KINASE 23 U/L (26-192); PHOSPHORUS 2.9 MG/DL (2.3-4.5)
[2023-02-21] MEDS ORDERED: temazepam 15mg capsule PO PRN (21:00)
[2023-02-21] MEDS ORDERED: LIDOcaine 1% 30ml preserv. free vial ONE (21:07)
[2023-02-21] MEDS ORDERED: BUPIVAcaine/PF 2.5 mg/ml (0.25%) 30ml vial ONE (21:07)
[2023-02-21 21:10] LABS: MAGNESIUM 0.3 MG/DL (1.5-2.4)
--- NOTE | 2023-02-21 21:17 | NUR ---
CRITICAL VALUE FROM THE LAB FOR MAG 0.3 . I CALLED CIRCULATING NURSE IN THE OR. [facility] AND TOLD HER THE VALUE. I HEARD HER REPEAT THE VALUE FOR THE DOCTOR. SEE NEW ORDERS
[2023-02-21] MEDS ORDERED: magnesium 2GM in 50ml NS 50 ML IV SCH (21:20)
[2023-02-21] MEDS ORDERED: BUPIVAcaine/PF 2.5 mg/ml (0.25%) 30ml vial IJ ONE (21:30)
[2023-02-21] MEDS ORDERED: LIDOcaine 1% 30ml preserv. free vial IJ ONE (21:30)
[2023-02-21] MEDS ORDERED: naloxone 0.4 mg/ml inj IV PRN (22:15)
--- NOTE | 2023-02-21 22:16 | NUR ---
Received from OR via SURGICAL BED, accompanied by Anesthesiologist DR UREÑA and report given by Anesthesiolgist. PT PLACED ON O2 AND MONITOR, S/P RA LAP ASSISTED LAP APPY, 3 LARGE BANDAIDS TO ABD ALL CDI, ABD SOFT, GENERAL ANESTH, PT DENIES ANY PAIN OR NAUSEA AT THIS TIME, 20G PIV IN LEFT FOREARM, WILL CONT TO ASSESS.
--- NOTE | 2023-02-21 22:54 | NUR ---
Patient in room ORTHO 4009. I have received report from YOSELIN MCKEON and had the opportunity to ask questions and will assume patient care when patient arrives on the unit.
[2023-02-21] MEDS ORDERED: magnesium Cl slow-release 64mg tablet PO PRN (22:55)
[2023-02-21] MEDS ORDERED: potassium Cl 40MEQ/1/2NS 520ml 520 ML IV PRN (22:55)
[2023-02-21] MEDS ORDERED: potassium Cl 20 mEq SR tablet PO PRN ×2 (22:55)
[2023-02-21] MEDS ORDERED: magnesium 4gm in 100ml NS 100 ML IV PRN (22:55)
[2023-02-21] MEDS ORDERED: magnesium 2GM in 50ml NS 50 ML IV PRN (22:55)
--- NOTE | 2023-02-21 23:05 | NUR ---
Patient arrived from OR via bed to room 4009C, I placed the call light in her reach. Significant other at bedside and he will stay until she gets settled than he know's he has to leave since it's after visiting hours. Patient is hooked up to the vitals machine and post op vitals are set up.
--- NOTE | 2023-02-21 23:06 | NUR ---
Report called to receiving nurse. Transferred via SURGICAL BED TOO ROOM 4009 Belongings . Special Issues communicated to receiving nurse. Addendum: 02/21/23 at 2318 by Agustina España RN time was 2310 when she arrived to floor in room 4009C
[2023-02-22] VITALS (7 sets, daily range): BP systolic 100–121; BP diastolic 51–80
[2023-02-22 00:51] LABS: URINE AMPHETAMINE SCREEN NEGATIVE (Neg); URINE BARBITUATE SCREEN NEGATIVE (Neg); URINE BENZODIAZEPINES SCREEN NEGATIVE (Neg); URINE CANNABINOID SCREEN NEGATIVE (Neg); URINE COCAINE SCREEN NEGATIVE (Neg); URINE METHADONE SCREEN NEGATIVE (Neg); URINE OPIATE SCREEN NEGATIVE (Neg); URINE PHENCYCLIDINE SCREEN NEGATIVE (Neg)
[2023-02-22] MEDS: acetaminophen 325mg tablet PO SCH ×3 (03:00→14:05)
[2023-02-22] MEDS: normal saline 1000ml 1,000 ML IV SCH (05:50)
--- NOTE | 2023-02-22 06:26 | NUR ---
Problems reprioritized. Patient report given, questions answered & plan of care reviewed with NORA MCKEON.
[2023-02-22 07:02] LABS: BASOPHILS % (AUTO) 0.2 % (0-1); EOSINOPHILS % (AUTO) 0 % (0-6); HEMATOCRIT 32.6 % (35.0-45.0); HEMOGLOBIN 10.6 g/dl (12.0-16.0); LYMPHOCYTES # (AUTO) 0.9 X10'3 (1.1-4.8); LYMPHOCYTES % (AUTO) 6.9 % (21-51); MEAN CORPUSCULAR HEMOGLOBIN 28.8 PG (27.0-31.0); MEAN CORPUSCULAR HGB CONC 32.4 g/dL (33.0-36.5); MEAN CORPUSCULAR VOLUME 89.1 FL (78-98); MEAN PLATELET VOLUME 8.8 FL (7.4-10.4); MONOCYTES # (AUTO) 0.1 X10'3 (0-0.9); MONOCYTES % (AUTO) 0.9 % (2-12); NEUTROPHILS # (AUTO) 11.8 X10'3 (1.8-7.7); PLATELET COUNT 364 X10'3 (140-440); RED BLOOD COUNT 3.66 X10'6 (4.20-5.60); RED CELL DISTRIBUTION WIDTH 13.1 % (11.5-14.5); WHITE BLOOD COUNT 12.9 X10'3 (4.5-11.0)
[2023-02-22 07:14] LABS: APTT 27 SECONDS (22-32)
[2023-02-22 07:27] LABS: ALANINE AMINOTRANSFERASE 73 U/L (12-78); ALBUMIN 2.8 G/DL (3.4-5.0); ALBUMIN/GLOBULIN RATIO 0.7 (1.1-1.5); ALKALINE PHOSPHATASE 142 IU/L (46-116); ANION GAP 10 (8-16); ASPARTATE AMINO TRANSFERASE 100 U/L (10-37); BILIRUBIN,TOTAL 0.3 MG/DL (0.1-1.0); BLOOD UREA NITROGEN 27 MG/DL (7-18); BUN/CREATININE RATIO 15.3 (10.0-20.0); CALCIUM 9.2 MG/DL (8.5-10.1); CHLORIDE 105 MMOL/L (99-107); CREATININE 1.76 MG/DL (0.40-0.90); GLUCOSE 159 MG/DL (70-104); POTASSIUM 4.5 MMOL/L (3.5-5.1); SODIUM 139 MMOL/L (135-145); TOTAL CARBON DIOXIDE 23.6 MMOL/L (24-32); TOTAL PROTEIN 6.9 G/DL (6.4-8.2); eGFR 29 ML/MIN
[2023-02-22 07:38] LABS: MAGNESIUM 0.8 MG/DL (1.5-2.4)
[2023-02-22] MEDS ORDERED: pantoprazole 40MG/NS 100ML BAG 100 ML IV SCH (08:00)
[2023-02-22] MEDS ORDERED: K and/or MAG REPLACEMENT MC SCH (08:00)
[2023-02-22] MEDS ORDERED: piperacillin/tazo 3.375gm/50ml 50 ML IV SCH (08:00)
[2023-02-22] MEDS ORDERED: nicotine 21mg patch - 24 hr TD SCH (08:00)
[2023-02-22] MEDS: docusate sod 100mg capsule PO SCH (08:45)
[2023-02-22] MEDS ORDERED: HYDROcodone/acetaminophen 10/325mg tab PO PRN (10:30)
[2023-02-22] MEDS ORDERED: HYDROcodone/acetaminophen 5mg/325mg tablet PO PRN (10:30)
[2023-02-22] MEDS ORDERED: HYDR12.55 (12:43)
[2023-02-22] MEDS ORDERED: lisinopril 20mg tablet PO SCH (16:15)
[2023-02-22] MEDS ORDERED: levoTHYROXINE 88mcg tablet PO SCH (16:15)
[2023-02-22] MEDS ORDERED: albuterol 2.5 MG/3 ML nebule NEB PRN (16:25)
[2023-02-22] MEDS ORDERED: cloNIDine 0.1 mg tablet PO PRN (16:45)
--- NOTE | 2023-02-22 17:15 | NUR ---
pt discharged in stable condition to home via yellow cab. iv removed tip intact no complications. belongings sent with pt. pt educated on follow up with Dr. Byrd.
[2023-02-22] MEDS ORDERED: gabapentin 300mg capsule PO SCH (21:00)
[2023-02-23] MEDS ORDERED: pantoprazole 40mg Tablet.DR PO SCH (07:30)
[2023-02-23] MEDS ORDERED: cholecalciferol (vitamin D3) 1,000 unit (25mcg) tablet PO SCH (08:00)
[2023-02-23] MEDS ORDERED: amLODIPine 5mg tablet PO SCH (08:00)
[2023-02-23] MEDS ORDERED: HYDROchlorothiazide 12.5mg capsule PO SCH (08:00)
[2023-02-23] MEDS ORDERED: metoprolol succinate 25mg (24-HOUR) SR. Tablet PO SCH (08:00)
== END 2023-02-22 17:00 | disposition home or self-care (01) | DRG 234 ==
LOC: ER 14:16 → ORTHO 4S 20:04
PROVIDERS: ADMIT Family Medicine; ATTEND Internal Medicine
PROC: 8E0W4CZ Robotic Assisted Procedure of Trunk Region, Percutaneous Endoscopic Approach (ICD-10-PCS; 2023-02-21)
PROC: 0DTJ4ZZ Resection of Appendix, Percutaneous Endoscopic Approach (ICD-10-PCS; principal; 2023-02-21 20:37)
DX: K35.80 Unspecified acute appendicitis (principal); N17.9 Acute kidney failure, unspecified; I13.0 Hypertensive heart and chronic kidney disease with heart failure and stage 1 through stage 4 chronic kidney disease, or unspecified chronic kidney disease; I50.32 Chronic diastolic (congestive) heart failure; D64.9 Anemia, unspecified; E03.9 Hypothyroidism, unspecified; E83.42 Hypomagnesemia; B19.20 Unspecified viral hepatitis C without hepatic coma; M54.9 Dorsalgia, unspecified; M54.50 Low back pain, unspecified; F15.10 Other stimulant abuse, uncomplicated; F17.210 Nicotine dependence, cigarettes, uncomplicated; F41.0 Panic disorder [episodic paroxysmal anxiety]; G89.29 Other chronic pain; I73.9 Peripheral vascular disease, unspecified; J43.9 Emphysema, unspecified; K21.9 Gastro-esophageal reflux disease without esophagitis; N18.30 Chronic kidney disease, stage 3 unspecified; Z88.6 Allergy status to analgesic agent; Z88.8 Allergy status to other drugs, medicaments and biological substances; Z90.49 Acquired absence of other specified parts of digestive tract; Z98.891 History of uterine scar from previous surgery; Z79.899 Other long term (current) drug therapy; Z71.6 Tobacco abuse counseling; Z71.51 Drug abuse counseling and surveillance of drug abuser
CPT/HCPCS: 36415; 74176; 80053; 80305; 81003; 81025; 82550; 83690; 83735; 83880; 84100; 84443; 85025; 85610; 85730; 87081; 94760; 99285; A4215; A4615; A4618; C9113; G0378; J0780; J1100; J1200; J2250; J2405; J2543; J2704; J2710; J3010; J3490; J7030; J7120

== ENCOUNTER 2023-03-15 11:04 | Inpatient (IN) | payer MEDICARE, MEDICAID ==
[~2023-03-15] VITALS: Ht 172.7 cm; Wt 53.4 kg
[~2023-03-15 11:04] MED LIST changes: -AZIT250T3 PO
[2023-03-15] MEDS ORDERED: acetaminophen 650mg rectal suppository RC ONE (12:15)
[2023-03-15 12:21] LABS: BASOPHILS # (AUTO) 0.1 X10'3 (0-0.2); BASOPHILS % (AUTO) 0.9 % (0-1); EOSINOPHILS % (AUTO) 0.5 % (0-6); HEMOGLOBIN 12.2 g/dl (12.0-16.0); LYMPHOCYTES # (AUTO) 1.9 X10'3 (1.1-4.8); LYMPHOCYTES % (AUTO) 21.7 % (21-51); MEAN CORPUSCULAR HEMOGLOBIN 29.5 PG (27.0-31.0); MEAN CORPUSCULAR HGB CONC 32.1 g/dL (33.0-36.5); MEAN CORPUSCULAR VOLUME 91.9 FL (78-98); MEAN PLATELET VOLUME 9.7 FL (7.4-10.4); MONOCYTES # (AUTO) 0.4 X10'3 (0-0.9); MONOCYTES % (AUTO) 4.7 % (2-12); NEUTROPHILS # (AUTO) 6.2 X10'3 (1.8-7.7); NEUTROPHILS % (AUTO) 72.2 % (42-75); PLATELET COUNT 343 X10'3 (140-440); RED BLOOD COUNT 4.14 X10'6 (4.20-5.60); RED CELL DISTRIBUTION WIDTH 15.9 % (11.5-14.5); WHITE BLOOD COUNT 8.6 X10'3 (4.5-11.0)
[2023-03-15 12:35] LABS: ALANINE AMINOTRANSFERASE 36 U/L (12-78); ALBUMIN 3.9 G/DL (3.4-5.0); ALKALINE PHOSPHATASE 106 IU/L (46-116); ANION GAP 13 (8-16); ASPARTATE AMINO TRANSFERASE 25 U/L (10-37); BILIRUBIN,TOTAL 0.4 MG/DL (0.1-1.0); BLOOD UREA NITROGEN 41 MG/DL (7-18); BUN/CREATININE RATIO 18.4 (10.0-20.0); CALCIUM 8.3 MG/DL (8.5-10.1); CHLORIDE 108 MMOL/L (99-107); CREATININE 2.23 MG/DL (0.40-0.90); GLUCOSE 130 MG/DL (70-104); POTASSIUM 3.8 MMOL/L (3.5-5.1); SODIUM 144 MMOL/L (135-145); TOTAL CARBON DIOXIDE 22.9 MMOL/L (24-32); TOTAL PROTEIN 7.9 G/DL (6.4-8.2); eGFR 22 ML/MIN
[2023-03-15 12:57] LABS: CLARITY,URINE CLOUDY (Clear); COLOR,URINE YELLOW (Yellow); GLUCOSE, URINE NEGATIVE (Neg); KETONES,URINE NEGATIVE (Neg); LEUKOCYTE ESTERASE ,URINE NEGATIVE (Neg); NITRITES, URINE POSITIVE (Neg); OCCULT BLOOD,URINE NEGATIVE (Neg); PH,URINE 5.5 (4.8-8.0); PROTEIN,URINE TRACE mg/dl (Neg); UROBILINOGEN,URINE 0.2 E.U/dL (0.2-1.0)
[2023-03-15 13:00] LABS: UA COLLECTION TYPE CLN CATCH MIDSTREAM
[2023-03-15 13:01] LABS: HYALINE CASTS 0-3 /LPF (NEGATIVE); MUCUS STRANDS FEW /LPF (Neg); SQUAMOUS EPITHELIAL CELL,UR FEW /LPF (FEW)
[2023-03-15 13:02] LABS: RBC,URINE 0-2 /HPF (0-2); WBC,URINE 0-4 /HPF (0-4)
[2023-03-15 13:03] LABS: AMORPHOUS URATES 2+; BACTERIA,URINE 1+ /HPF (Neg)
[2023-03-15 13:08] LABS: URINE AMPHETAMINE SCREEN POSITIVE (Neg); URINE BARBITUATE SCREEN NEGATIVE (Neg); URINE BENZODIAZEPINES SCREEN NEGATIVE (Neg); URINE CANNABINOID SCREEN NEGATIVE (Neg); URINE COCAINE SCREEN NEGATIVE (Neg); URINE METHADONE SCREEN NEGATIVE (Neg); URINE OPIATE SCREEN NEGATIVE (Neg); URINE PHENCYCLIDINE SCREEN NEGATIVE (Neg)
[2023-03-15] MEDS ORDERED: CefTRIAXone 2gm/D5W 50ml BAG 50 ML IV ONE (13:15)
[2023-03-15] MEDS ORDERED: vancomycin/NS 1 GM ADD-VANTAGE 250 ML IV ONE (13:15)
[2023-03-15] MEDS ORDERED: ibuprofen tablet 400 MG TABLET PO ONE (15:30)
--- NOTE | 2023-03-15 15:48 | NUR ---
PT 'S BOYFRIEND AT BEDSIDE. STATES, "SHE HAS BEEN CALLING ME DADDY AND NEVER CALLS ME DADDY"
--- NOTE | 2023-03-15 16:01 | NUR ---
patient is only alert and oriented to name,Dr. Childers states no stroke alert, will do Lumbar tap instead.Significant other at bedside.
[2023-03-15] MEDS ORDERED: mag hydrox/Alum hydrox/simeth 30ml oral suspension PO PRN (16:30)
[2023-03-15] MEDS ORDERED: potassium Cl 20 mEq SR tablet PO PRN (16:30)
[2023-03-15] MEDS ORDERED: magnesium hydroxide 30ml (MOM) UD suspension PO PRN (16:30)
[2023-03-15] MEDS ORDERED: potassium Cl 40MEQ/1/2NS 520ml 520 ML IV PRN (16:30)
[2023-03-15] MEDS ORDERED: bisacodyl 10mg suppository rectal RC PRN (16:30)
[2023-03-15] MEDS ORDERED: diphenhydrAMINE 25mg capsule PO PRN (16:30)
[2023-03-15] MEDS ORDERED: magnesium 2GM in 50ml NS 50 ML IV PRN (16:30)
[2023-03-15] MEDS ORDERED: magnesium 4gm in 100ml NS 100 ML IV PRN (16:30)
[2023-03-15] MEDS ORDERED: ondansetron 4mg rapidly disintigrating tab PO PRN (16:30)
[2023-03-15] MEDS ORDERED: ondansetron/PF 4mg/2ml inj IV PRN (16:30)
[2023-03-15] MEDS ORDERED: acetaminophen 650mg rectal suppository RC PRN (16:30)
[2023-03-15] MEDS ORDERED: acetaminophen 325mg tablet PO PRN ×2 (16:30)
[2023-03-15] MEDS ORDERED: PERFLUTREN PROTEIN-A MICROSPHR (Optison) 0.22 MG/ML 3ML VIAL IV ONE (16:30)
[2023-03-15] MEDS ORDERED: vancomycin/NS 1 GM ADD-VANTAGE 250 ML X 1 DOSE IV PRN (16:55)
[2023-03-15] MEDS ORDERED: cloNIDine 0.1 mg tablet PO PRN (17:05)
[2023-03-15] MEDS ORDERED: albuterol 2.5 MG/3 ML nebule NEB PRN (17:05)
[2023-03-15] MEDS: normal saline 1000ml 1,000 ML IV SCH ×2 (17:10→17:37)
[2023-03-15 17:12] LABS: HEMOGLOBIN A1C 5.8 % (4.5-6.2)
--- NOTE | 2023-03-15 17:20 | NUR ---
Patient in room ED 4. I have received report from ED RN and had the opportunity to ask questions and assume patient care.
[2023-03-15 17:37] VITALS: BP 153/75
[2023-03-15 18:00] VITALS: BP 140/62
--- NOTE | 2023-03-15 18:15 | NUR ---
Received report from primary care nurse Christine MCKEON. Assumed patient care. Patient is resting with relaxed and unlabored respirations on room air. Call light and items of frequent use within reach. Bed alarm on and audible. Will continue to monitor for changes.
--- NOTE | 2023-03-15 18:48 | NUR ---
Problems reprioritized. Patient report given, questions answered & plan of care reviewed with Elena MCKEON.
[2023-03-15] MEDS: K and/or MAG REPLACEMENT MC SCH (19:28)
[2023-03-15] MEDS: docusate sod 100mg capsule PO SCH (19:29)
[2023-03-15] MEDS: heparin, porcine 5000 units/ml vial SQ SCH (19:35)
[2023-03-15 22:00] VITALS: BP 143/63
[2023-03-16 02:00] VITALS: BP 158/64
[2023-03-16 05:53] LABS: BASOPHILS # (AUTO) 0.1 X10'3 (0-0.2); BASOPHILS % (AUTO) 1.3 % (0-1); EOSINOPHILS % (AUTO) 0.3 % (0-6); HEMATOCRIT 32.2 % (35.0-45.0); HEMOGLOBIN 10.6 g/dl (12.0-16.0); LYMPHOCYTES # (AUTO) 2.9 X10'3 (1.1-4.8); LYMPHOCYTES % (AUTO) 32.9 % (21-51); MEAN CORPUSCULAR HEMOGLOBIN 29.9 PG (27.0-31.0); MEAN CORPUSCULAR HGB CONC 32.9 g/dL (33.0-36.5); MEAN CORPUSCULAR VOLUME 90.7 FL (78-98); MEAN PLATELET VOLUME 10.1 FL (7.4-10.4); MONOCYTES # (AUTO) 0.6 X10'3 (0-0.9); MONOCYTES % (AUTO) 7.1 % (2-12); NEUTROPHILS # (AUTO) 5.2 X10'3 (1.8-7.7); NEUTROPHILS % (AUTO) 58.4 % (42-75); PLATELET COUNT 251 X10'3 (140-440); RED BLOOD COUNT 3.55 X10'6 (4.20-5.60); RED CELL DISTRIBUTION WIDTH 15.7 % (11.5-14.5); WHITE BLOOD COUNT 8.8 X10'3 (4.5-11.0)
--- NOTE | 2023-03-16 06:19 | NUR ---
Reported off to Maude MCKEON. Patient is resting with relaxed and unlabored respirations on room air. In no apparent distress. Bed alarms on and audible. Call light and items of frequent use within reach.
[2023-03-16 06:22] LABS: ALANINE AMINOTRANSFERASE 33 U/L (12-78); ALBUMIN 3.3 G/DL (3.4-5.0); ALBUMIN/GLOBULIN RATIO 0.9 (1.1-1.5); ALKALINE PHOSPHATASE 86 IU/L (46-116); ANION GAP 15 (8-16); ASPARTATE AMINO TRANSFERASE 28 U/L (10-37); BILIRUBIN,TOTAL 0.3 MG/DL (0.1-1.0); BLOOD UREA NITROGEN 32 MG/DL (7-18); BUN/CREATININE RATIO 18.3 (10.0-20.0); CALCIUM 7.8 MG/DL (8.5-10.1); CHLORIDE 110 MMOL/L (99-107); CHOL/HDL RATIO 4.7 (0.00-4.99); CHOLESTEROL 151 MG/DL (0-200); CREATININE 1.75 MG/DL (0.40-0.90); GLUCOSE 80 MG/DL (70-104); HDL CHOLESTEROL 32 MG/DL (35-60); LDL CHOLESTEROL 98 MG/DL (50-100); PHOSPHORUS 2.6 MG/DL (2.3-4.5); POTASSIUM 3.2 MMOL/L (3.5-5.1); SODIUM 145 MMOL/L (135-145); TOTAL CARBON DIOXIDE 20.2 MMOL/L (24-32); TOTAL PROTEIN 6.9 G/DL (6.4-8.2); TRIGLYCERIDES 102 MG/DL (20-135); eGFR 29 ML/MIN
[2023-03-16 06:29] LABS: MAGNESIUM 0.3 MG/DL (1.5-2.4)
--- NOTE | 2023-03-16 06:48 | NUR ---
CRITICAL MAG 0.3, DR DUMONT, WILL REPLACE PER PROTOCOL
[2023-03-16 07:00] VITALS: BP 151/76
[2023-03-16] MEDS: K and/or MAG REPLACEMENT MC SCH ×2 (08:00→20:00)
[2023-03-16] MEDS: CefTRIAXone/D5W-Rocephin 1gm 50 ML IV SCH (09:32)
[2023-03-16] MEDS: normal saline 1000ml 1,000 ML IV SCH ×3 (09:34→19:09)
[2023-03-16] MEDS: HYDROchlorothiazide 12.5mg capsule PO SCH (11:23)
[2023-03-16] MEDS: metoprolol succinate 25mg (24-HOUR) SR. Tablet PO SCH (11:23)
[2023-03-16] MEDS: amLODIPine 5mg tablet PO SCH (11:23)
[2023-03-16] MEDS: lisinopril 20mg tablet PO SCH (11:23)
[2023-03-16] MEDS: docusate sod 100mg capsule PO SCH ×2 (11:24→19:26)
[2023-03-16] MEDS: pantoprazole 40mg Tablet.DR PO SCH (11:24)
[2023-03-16] MEDS: magnesium Cl slow-release 64mg tablet PO PRN ×2 (11:24→19:25)
[2023-03-16] MEDS: potassium Cl 20 mEq SR tablet PO PRN ×2 (11:24→19:25)
[2023-03-16] MEDS: levoTHYROXINE 88mcg tablet PO SCH (11:24)
[2023-03-16] MEDS: heparin, porcine 5000 units/ml vial SQ SCH ×2 (11:25→19:24)
[2023-03-16] MEDS: cholecalciferol (vitamin D3) 1,000 unit (25mcg) tablet PO SCH (11:27)
[2023-03-16 12:00] VITALS: BP 142/61
[2023-03-16] MEDS ORDERED: vancomycin inj 500 MG in normal saline 100ml IV soln 100 ML IV SCH (14:00)
[2023-03-16 16:00] VITALS: BP 124/59
--- NOTE | 2023-03-16 16:03 | NUR ---
Malnutrition Consult: Pt admit DX sepsis, UTI, encephalopathy, meth abuse, dehydration, acute renal failure, HTN, GERD, hypothyroidism, and neuropathy per EMR. 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 Pending scaled wt this admit current wt 53.4kg though prior wt hx 59kg past year of visits in EMR. Pt w/ mild weakness, no edema/wounds, and pending initial intake first heart healthy diet this admit. Noted pt hx etoh w/ Mg 0.3mg/dl on admit; NISHA magdaleno MD regarding routine thiamine, folic acid, MVI if agreeable. RD d/w RN who reports pt small stature though no visible wasting evident. Pt lacks minimum malnutrition criteria at this time; will monitor for further malnutrition criteria this admit. Rec: 1. liberalize to regular diet; pt receiving IV NS and TG/Total Chol WNL 2. monitor initial PO trends for ONS needs 3. consider routine thiamine, folic acid, and MVI for etoh hx 4. routine bowel care 5. scaled wt this admit; subsequent daily wt Addendum: 03/16/23 at [address] Amended: Links added.
--- NOTE | 2023-03-16 18:19 | NUR ---
Problems reprioritized. Patient report given, questions answered & plan of care reviewed with GILES ALAN.
--- NOTE | 2023-03-17 00:15 | NUR ---
Page Sent PAGER ID: [phone] MESSAGE: [phone] Joelle Lowery: pt requests nicotine patch as she smokes more than a pack a day for 30+ yrs. thank you Jessenia [phone]
[2023-03-17] MEDS: nicotine 14mg patch - 24hr TD SCH ×2 (00:33→10:35)
[2023-03-17 05:46] LABS: BASOPHILS # (AUTO) 0.1 X10'3 (0-0.2); EOSINOPHILS # (AUTO) 0.1 X10'3 (0-0.9); EOSINOPHILS % (AUTO) 1.2 % (0-6); HEMATOCRIT 30.8 % (35.0-45.0); LYMPHOCYTES # (AUTO) 2.8 X10'3 (1.1-4.8); MEAN CORPUSCULAR HEMOGLOBIN 29.5 PG (27.0-31.0); MEAN CORPUSCULAR HGB CONC 32.5 g/dL (33.0-36.5); MEAN CORPUSCULAR VOLUME 90.8 FL (78-98); MEAN PLATELET VOLUME 9.8 FL (7.4-10.4); MONOCYTES # (AUTO) 0.5 X10'3 (0-0.9); MONOCYTES % (AUTO) 6.9 % (2-12); NEUTROPHILS # (AUTO) 3.6 X10'3 (1.8-7.7); NEUTROPHILS % (AUTO) 50.9 % (42-75); PLATELET COUNT 228 X10'3 (140-440); RED BLOOD COUNT 3.39 X10'6 (4.20-5.60); RED CELL DISTRIBUTION WIDTH 15.6 % (11.5-14.5); WHITE BLOOD COUNT 7.2 X10'3 (4.5-11.0)
[2023-03-17 06:02] LABS: ALANINE AMINOTRANSFERASE 33 U/L (12-78); ALBUMIN 3.1 G/DL (3.4-5.0); ALKALINE PHOSPHATASE 78 IU/L (46-116); ANION GAP 11 (8-16); ASPARTATE AMINO TRANSFERASE 27 U/L (10-37); BILIRUBIN,TOTAL 0.3 MG/DL (0.1-1.0); BLOOD UREA NITROGEN 21 MG/DL (7-18); BUN/CREATININE RATIO 13.3 (10.0-20.0); CHLORIDE 111 MMOL/L (99-107); CREATININE 1.58 MG/DL (0.40-0.90); GLUCOSE 92 MG/DL (70-104); PHOSPHORUS 1.9 MG/DL (2.3-4.5); POTASSIUM 3.6 MMOL/L (3.5-5.1); SODIUM 144 MMOL/L (135-145); TOTAL CARBON DIOXIDE 21.7 MMOL/L (24-32); TOTAL PROTEIN 6.2 G/DL (6.4-8.2); eGFR 33 ML/MIN
[2023-03-17 06:06] LABS: MAGNESIUM 0.4 MG/DL (1.5-2.4)
--- NOTE | 2023-03-17 06:28 | NUR ---
Page Sent PAGER ID: [phone] MESSAGE: [phone]: Joelle Lowery: Critical Mag 0.4. will replace per protocol. thank you. Brit [phone]
[2023-03-17 07:00] VITALS: BP 131/66
--- NOTE | 2023-03-17 07:02 | NUR ---
Patient in room PCU 3022P. I have received report from GILES ALAN and had the opportunity to ask questions and assume patient care.
[2023-03-17] MEDS: lisinopril 20mg tablet PO SCH (10:42)
[2023-03-17] MEDS: HYDROchlorothiazide 12.5mg capsule PO SCH (10:43)
[2023-03-17] MEDS: cholecalciferol (vitamin D3) 1,000 unit (25mcg) tablet PO SCH (10:43)
[2023-03-17] MEDS: pantoprazole 40mg Tablet.DR PO SCH (10:43)
[2023-03-17] MEDS: levoTHYROXINE 88mcg tablet PO SCH (10:43)
[2023-03-17] MEDS: metoprolol succinate 25mg (24-HOUR) SR. Tablet PO SCH (10:43)
[2023-03-17] MEDS: amLODIPine 5mg tablet PO SCH (10:43)
[2023-03-17] MEDS: heparin, porcine 5000 units/ml vial SQ SCH ×2 (10:44→21:01)
[2023-03-17] MEDS: K and/or MAG REPLACEMENT MC SCH ×2 (10:44→20:00)
[2023-03-17] MEDS: docusate sod 100mg capsule PO SCH ×2 (10:44→20:00)
[2023-03-17 12:00] VITALS: BP 141/68
[2023-03-17] MEDS: CefTRIAXone/D5W-Rocephin 1gm 50 ML IV SCH (12:13)
[2023-03-17] MEDS: normal saline 1000ml 1,000 ML IV SCH ×2 (12:43→16:30)
[2023-03-17] MEDS ORDERED: VANCOMYCIN 750MG IV in NS 250 ML IV SCH (14:00)
[2023-03-17 16:00] VITALS: BP 133/66
[2023-03-17 16:58] VITALS: BP_SYST 120; BP_SYST 128; BP_SYST 135; BP_DIAS 59; BP_DIAS 63
--- NOTE | 2023-03-17 18:42 | NUR ---
Problems reprioritized. Patient report given, questions answered & plan of care reviewed with LINDA ARAMBULA.
--- NOTE | 2023-03-17 19:30 | NUR ---
PT STATED SHE WAS LEAVING AMA. SHE WAS SOMEWHAT RESISTIVE TO CARE. ACCORDING TO THE PATIENT THE DR ACCUSED HER OF ABUSING DRUGS. PT STATED SHE COULDN'T STAY HERE. ARRIVED AND HE HELPED ME TO ENCOURAGE THE PATIENT TO STAY THE NIGHT.
--- NOTE | 2023-03-17 23:15 | NUR ---
PT IV MAGNESIUM WAS STOPPED AT 2315.
[2023-03-17 23:25] VITALS: BP 145/64
--- NOTE | 2023-03-17 23:28 | NUR ---
PAGER ID: [phone] MESSAGE: PT RM [id number] ROSALINDA MARTINEZ IS COMPLAINING OF ITCHINESS ALL OVER BODY AND HER EYES. PLEASE ADVISE TEYSHA [phone]
[2023-03-17] MEDS ORDERED: hydrOXYzine 25 MG tablet PO ONE (23:30)
--- NOTE | 2023-03-17 23:38 | NUR ---
DR DUNBAR ORDERED ATARAX FOR PATIENT'S ITCHINESS. PATIENT VITALS STABLE 145/64; HR 69; SATTING 100% ON RA; PT DENIES ANY SOB OR WELLING IN THROAT. ATARAX ADMINISTERED INSTRUCTED PT TO HIT CALL LIGHT IF CONDITION CHANGES.
[2023-03-18] MEDS: normal saline 1000ml 1,000 ML IV SCH (00:30)
[2023-03-18 03:00] VITALS: BP 142/64
--- NOTE | 2023-03-18 05:16 | NUR ---
PT REPORTS THAT SHE IS NOT ITCHY AND HER EYES ARE FEELING BETTER.
--- NOTE | 2023-03-18 06:17 | NUR ---
Problems reprioritized. Patient report given, questions answered & plan of care reviewed with LINDA BRUMFIELD.
--- NOTE | 2023-03-18 06:35 | NUR ---
Patient in room PCU 3028A. I have received report from LINDA ARAMBULA and had the opportunity to ask questions and assume patient care.
[2023-03-18 07:00] VITALS: BP 142/62
[2023-03-18 07:27] LABS: BASOPHILS # (AUTO) 0.1 X10'3 (0-0.2); BASOPHILS % (AUTO) 1.4 % (0-1); EOSINOPHILS # (AUTO) 0.1 X10'3 (0-0.9); EOSINOPHILS % (AUTO) 1.8 % (0-6); HEMATOCRIT 33.4 % (35.0-45.0); HEMOGLOBIN 10.8 g/dl (12.0-16.0); LYMPHOCYTES # (AUTO) 2.3 X10'3 (1.1-4.8); LYMPHOCYTES % (AUTO) 28.1 % (21-51); MEAN CORPUSCULAR HEMOGLOBIN 29.6 PG (27.0-31.0); MEAN CORPUSCULAR HGB CONC 32.3 g/dL (33.0-36.5); MEAN CORPUSCULAR VOLUME 91.6 FL (78-98); MEAN PLATELET VOLUME 10.3 FL (7.4-10.4); MONOCYTES # (AUTO) 0.6 X10'3 (0-0.9); NEUTROPHILS # (AUTO) 5.1 X10'3 (1.8-7.7); NEUTROPHILS % (AUTO) 61.7 % (42-75); PLATELET COUNT 249 X10'3 (140-440); RED BLOOD COUNT 3.65 X10'6 (4.20-5.60); WHITE BLOOD COUNT 8.2 X10'3 (4.5-11.0)
[2023-03-18 07:51] LABS: ALANINE AMINOTRANSFERASE 32 U/L (12-78); ALBUMIN 3.3 G/DL (3.4-5.0); ALKALINE PHOSPHATASE 84 IU/L (46-116); ANION GAP 12 (8-16); ASPARTATE AMINO TRANSFERASE 20 U/L (10-37); BILIRUBIN,TOTAL 0.3 MG/DL (0.1-1.0); BLOOD UREA NITROGEN 22 MG/DL (7-18); BUN/CREATININE RATIO 13.1 (10.0-20.0); CALCIUM 9.3 MG/DL (8.5-10.1); CHLORIDE 111 MMOL/L (99-107); CREATININE 1.68 MG/DL (0.40-0.90); GLUCOSE 89 MG/DL (70-104); MAGNESIUM 1.6 MG/DL (1.5-2.4); PHOSPHORUS 2.8 MG/DL (2.3-4.5); POTASSIUM 4.1 MMOL/L (3.5-5.1); SODIUM 143 MMOL/L (135-145); TOTAL CARBON DIOXIDE 20.4 MMOL/L (24-32); TOTAL PROTEIN 6.7 G/DL (6.4-8.2); eGFR 31 ML/MIN
[2023-03-18 10:00] VITALS: BP_SYST 146; BP_SYST 148; BP_DIAS 64; BP_DIAS 66; BP_DIAS 71
[2023-03-18] MEDS: nicotine 14mg patch - 24hr TD SCH ×2 (10:21→11:31)
[2023-03-18] MEDS: heparin, porcine 5000 units/ml vial SQ SCH (10:22)
[2023-03-18] MEDS: metoprolol succinate 25mg (24-HOUR) SR. Tablet PO SCH (10:23)
[2023-03-18] MEDS: CefTRIAXone/D5W-Rocephin 1gm 50 ML IV SCH (10:23)
[2023-03-18] MEDS: pantoprazole 40mg Tablet.DR PO SCH (10:23)
[2023-03-18] MEDS: levoTHYROXINE 88mcg tablet PO SCH (10:23)
[2023-03-18] MEDS: amLODIPine 5mg tablet PO SCH (10:24)
[2023-03-18] MEDS: HYDROchlorothiazide 12.5mg capsule PO SCH (10:29)
[2023-03-18] MEDS: cholecalciferol (vitamin D3) 1,000 unit (25mcg) tablet PO SCH (10:29)
[2023-03-18] MEDS: lisinopril 20mg tablet PO SCH (10:29)
[2023-03-18 11:00] VITALS: BP 138/61
[2023-03-18] MEDS: docusate sod 100mg capsule PO SCH (11:31)
[2023-03-18] MEDS ORDERED: CEFD300C3 PO (14:12)
[2023-03-18] MEDS ORDERED: GABA100C PO (14:12)
[2023-03-18] MEDS ORDERED: LACT1CAP26 PO (14:12)
--- NOTE | 2023-03-18 16:07 | NUR ---
PATIENT STABLE AND APPROPRIATE FOR DISCHARGE, IV & TELE REMOVED, EDUCATION GIVEN, NEW MEDS E-SCRIPTED TO PREFERRED PHARMACY, ALL BELONGINGS SENT WITH PATIENT, PATIENT TAKEN TO LOBBY BY WHEELCHAIR TO AN AWAITING CAR WHERE WILL TAKE PATIENT HOME
[2023-03-19] MEDS ORDERED: VANCOMYCIN LEVEL IV ONE (13:30)
[2023-03-20] MEDS ORDERED: VANCOMYCIN LEVEL IV ONE (13:30)
== END 2023-03-18 14:52 | disposition home or self-care (01) | DRG 871 ==
LOC: ER 11:04 → ED HOLD 16:33 → PCU 3S 17:28
PROVIDERS: ADMIT Family Medicine; ATTEND Family Medicine
DX: A41.9 Sepsis, unspecified organism (principal); G93.41 Metabolic encephalopathy; N17.0 Acute kidney failure with tubular necrosis; N39.0 Urinary tract infection, site not specified; F15.20 Other stimulant dependence, uncomplicated; E03.9 Hypothyroidism, unspecified; E86.0 Dehydration; T43.651A Poisoning by methamphetamines accidental (unintentional), initial encounter; B19.20 Unspecified viral hepatitis C without hepatic coma; G89.29 Other chronic pain; K21.9 Gastro-esophageal reflux disease without esophagitis; M54.9 Dorsalgia, unspecified; E83.42 Hypomagnesemia; E87.6 Hypokalemia; F17.210 Nicotine dependence, cigarettes, uncomplicated; F41.0 Panic disorder [episodic paroxysmal anxiety]; G62.9 Polyneuropathy, unspecified; I12.9 Hypertensive chronic kidney disease with stage 1 through stage 4 chronic kidney disease, or unspecified chronic kidney disease; J44.9 Chronic obstructive pulmonary disease, unspecified; N18.30 Chronic kidney disease, stage 3 unspecified; Z88.6 Allergy status to analgesic agent; Z88.8 Allergy status to other drugs, medicaments and biological substances; Z90.49 Acquired absence of other specified parts of digestive tract; Z98.891 History of uterine scar from previous surgery; Z79.899 Other long term (current) drug therapy; Y92.89 Other specified places as the place of occurrence of the external cause; Z71.6 Tobacco abuse counseling; Z71.51 Drug abuse counseling and surveillance of drug abuser; Z79.890 Hormone replacement therapy; Z71.41 Alcohol abuse counseling and surveillance of alcoholic
CPT/HCPCS: 36415; 70450; 71045; 80053; 80061; 80305; 80320; 81001; 83036; 83605; 83735; 84100; 84145; 84439; 84443; 85025; 87040; 87081; 87088; 93306; 94760; 96365; 97116; 97161; 97530; 99285; G0378; J0696; J1644; J2405; J3370; J3475; J3490; J7030; J7050; Q0177

== ENCOUNTER 2024-05-15 05:50 | Emergency (ER) | payer MEDICARE, MEDICAID ==
[~2024-05-15] VITALS: Ht 170.2 cm; Wt 59.1 kg
[~2024-05-15 05:50] MED LIST changes: +GABA100C PO; -GABA300C PO; +LACT1CAP26 PO
[2024-05-15 06:02] VITALS: TEMP 99.1
[2024-05-15 09:46] LABS: ALBUMIN 3.3 G/DL (3.4-5.0); ANION GAP 7 (8-16); BLOOD UREA NITROGEN 42 MG/DL (7-18); BUN/CREATININE RATIO 16.7 (10.0-20.0); CHLORIDE 103 MMOL/L (99-107); CREATININE 2.51 MG/DL (0.40-0.90); GLUCOSE 139 MG/DL (70-104); POTASSIUM 3.3 MMOL/L (3.5-5.1); SODIUM 139 MMOL/L (135-145); TOTAL CARBON DIOXIDE 29.5 MMOL/L (24-32); eCRCL 21 ML/MIN; eGFR 19 ML/MIN
[2024-05-15 09:49] LABS: BASOPHILS # (AUTO) 0.1 X10'3 (0-0.2); BASOPHILS % (AUTO) 1.5 % (0-1); EOSINOPHILS # (AUTO) 0.3 X10'3 (0-0.9); EOSINOPHILS % (AUTO) 3.3 % (0-6); HEMATOCRIT 33.2 % (35.0-45.0); HEMOGLOBIN 10.9 g/dl (12.0-16.0); LYMPHOCYTES # (AUTO) 2.7 X10'3 (1.1-4.8); LYMPHOCYTES % (AUTO) 34.4 % (21-51); MEAN CORPUSCULAR HEMOGLOBIN 29.5 PG (27.0-31.0); MEAN CORPUSCULAR VOLUME 89.6 FL (78-98); MEAN PLATELET VOLUME 8.8 FL (7.4-10.4); MONOCYTES # (AUTO) 0.7 X10'3 (0-0.9); MONOCYTES % (AUTO) 8.7 % (2-12); NEUTROPHILS % (AUTO) 52.1 % (42-75); PLATELET COUNT 329 X10'3 (140-440); RED BLOOD COUNT 3.71 X10'6 (4.20-5.60); RED CELL DISTRIBUTION WIDTH 13.2 % (11.5-14.5); WHITE BLOOD COUNT 7.8 X10'3 (4.5-11.0)
[2024-05-15] MEDS ORDERED: HYDR-3973 PO (10:32)
[2024-05-15] MEDS: HYDROcodone/acetaminophen 10/325mg tab PO ONE (10:38)
[2024-05-15 11:42] VITALS: BP 118/79; PULSE 61; RESP 16; O2SAT 97
[2024-05-16] MEDS ORDERED: HYDR-3965 PO ×2 (11:22→11:24)
== END 2024-05-15 11:44 | disposition home or self-care (01) ==
LOC: ER 05:51
DX: S93.601A Unspecified sprain of right foot, initial encounter (principal); I12.9 Hypertensive chronic kidney disease with stage 1 through stage 4 chronic kidney disease, or unspecified chronic kidney disease; N18.9 Chronic kidney disease, unspecified; J44.9 Chronic obstructive pulmonary disease, unspecified; G89.29 Other chronic pain; M54.9 Dorsalgia, unspecified; F17.200 Nicotine dependence, unspecified, uncomplicated; F12.90 Cannabis use, unspecified, uncomplicated; F15.90 Other stimulant use, unspecified, uncomplicated; Z88.6 Allergy status to analgesic agent; Z88.5 Allergy status to narcotic agent; Z79.899 Other long term (current) drug therapy; Z79.2 Long term (current) use of antibiotics; Z90.49 Acquired absence of other specified parts of digestive tract; Z98.890 Other specified postprocedural states; X58.XXXA Exposure to other specified factors, initial encounter; Y93.89 Activity, other specified; Y92.89 Other specified places as the place of occurrence of the external cause; Y99.8 Other external cause status
CPT/HCPCS: 36415; 73600; 73630; 80048; 85025; 99284